=== PATIENT | female | born 1980 | race Caucasian/White ===

== ENCOUNTER 2017-11-08 01:13 | Emergency (ER) | payer BC, OTHER ==
[2017-11-08 02:24] VITALS: BP 128/89; PULSE 101; TEMP 98.8; BMI 46.4
[2017-11-08] MEDS ORDERED: SODIUM CHLORIDE 1,000 ML IV STA (02:39)
[2017-11-08] MEDS ORDERED: ONDANSETRON 4 MG/2 ML VIAL IVPUSH STA (02:39)
[2017-11-08] MEDS ORDERED: ONDANSETRON 4 MG/2 ML VIAL ONE (02:43)
--- NOTE | 2017-11-08 02:59 | PDOC ---
History of Present Illness - General Chief Complaint: Vomiting/Diarrhea Stated Complaint: VOMITING Time Seen by Provider: 11/08/17 02:18 History Source: Patient - History of Present Illness Initial Comments: 11/08/17 03:49 37F presenting with multiple episodes of vomiting and diarrhea since 3pm this afternoon after eating what she thinks was spoiled sushi. Generalized muscle aches from what she believes is from joey her body during the episodes. No blood in stool, no headache, no abdominal pain no dysuria. Delivered 6 month ago. No one else sick at home. Multiple histories of nephrolithiasis 11/08/17 03:55 Past History - Past Medical History Allergies/Adverse Reactions: Allergies Allergy/AdvReac Type Severity Reaction Status Date / Time codeine [Codeine] Allergy Mild Hives Verified 11/08/17 02:24 Home Medications: Ambulatory Orders Pnv No.25/Iron Fumarate/FA/Dha [-1 Capsule] 1 each PO DAILY 10/08/12 Acetaminophen [Tylenol .Regular Strength -] 325 mg PO Q3H PRN #2 tablet Ibuprofen [Motrin -] 200 mg PO Q4H PRN #2 tablet 10/19/12 Vitamins (Sjr) - 1 tab PO DAILY #1 tablet 10/19/12 Asthma: No Cancer: No Cardiac Disorders: No Diabetes: No HTN: No Seizures: No Thyroid Disease: No - Suicide/Smoking/Psychosocial Hx Smoking History: Never smoked Have you smoked in the past 12 months: No Information on smoking cessation initiated: No Hx Alcohol Use: No Drug/Substance Use Hx: No Hx Substance Use Treatment: No Review of Systems - Review of Systems Able to Perform ROS?: Yes Constitutional: Yes: See HPI, Loss of Appetite. No: Fever HEENTM: No: Symptoms Reported Respiratory: No: Symptoms reported Cardiac (ROS): No: Symptoms Reported ABD/GI: Yes: See HPI, Diarrhea, Vomiting, Indigestion, Abdominal cramping. No: Blood Streaked Bowels, Constipated, Rectal Bleeding : No: Symptoms Reported Musculoskeletal: No: Symptoms Reported Integumentary: No: Symptoms Reported All Other Systems: Reviewed and Negative *Physical Exam - Vital Signs Last Vital Signs Temp Pulse Resp BP Pulse Ox 98.8 F 101 H 20 128/89 99 11/08/17 02:11 11/08/17 02:11 11/08/17 02:11 11/08/17 02:11 11/08/17 02:11 - Physical Exam General Appearance: Yes: Appropriately Dressed, Apparent Distress, Obese HEENT: positive: EOMI, TARSHA, Normal ENT Inspection Neck: negative: Tender Respiratory/Chest: positive: Lungs Clear, Normal Breath Sounds. negative: Chest Tender Cardiovascular: positive: Regular Rhythm, Regular Rate, S1, S2 Gastrointestinal/Abdominal: positive: Soft, Increased Bowel Sounds, Protuberent. negative: Distended, Guarding, Rebound, Tenderness, Hernia, Mass, Hepatomegaly, Spleenomegaly Integumentary: positive: Normal Color, Dry, Warm. negative: Cyanotic, Pale, Cold, Clammy, Diaphoresis Neurologic: positive: Fully Oriented, Alert, Normal Mood/Affect, Normal Response , Motor Strength 03/22 ED Treatment Course - LABORATORY CBC & Chemistry Diagram: 11/08/17 02:54 11/08/17 02:54 - Medications Given in the ED: ED Medications Discontinued Medications Generic Name Dose Route Start Last Admin Trade Name Lali PRN Reason Stop Dose Admin Ondansetron HCl 4 mg 11/08/17 02:39 11/08/17 02:57 Zofran Injection IVPUSH 11/08/17 02:40 4 mg ONCE STA Administration Medical Decision Making - Medical Decision Making 11/08/17 03:56 37F with n/v post lunch. food poisoning vs viral gastroenteritis vs ? cbc, cmp to assess electrolyte depletion 11/08/17 04:20 iron deficiency anemia, incidental tolerates PO now. just urinated UA u preg pending--> negative ok to DC with follow up 11/08/17 04:50 *DC/Admit/Observation/Transfer Diagnosis at time of Disposition: Food poisoning - Discharge Dispostion Disposition: HOME Condition at time of disposition: Fair Admit: No - Referrals Referrals: Deniz James MD [Primary Care Provider] - - Patient Instructions Printed Discharge Instructions: DI for Food Poisoning, Iron-Deficiency Anemia Additional Instructions: PLease follow up with your primary physician within the next 2 days. Come back to Er for any new, worsning or concerning symptoms. - Post Discharge Activity
[2017-11-08 03:18] LABS: BASO # 0.1 # (0.1-1); BASO % 0.4 % (0-2.0); EOS % 0.3 % (0-4.5); LYMPH # 0.2 (8-40); MCH 21.8 pg (25.7-33.7); MCHC 31.4 g/dl (32.0-36.0); MEAN CELL VOLUME 69.6 fl (80-96); MEAN PLT VOLUME 7.5 fl (7.5-11.1); MONO # 0.3 # (3.8-10.2); NEUT # 11.5 # (42.8-82.8); NEUT % 95.1 % (42.8-82.8); PLATELET COUNT 353 K/MM3 (134-434); RDW 19.7 % (11.6-15.6); WHITE BLOOD COUNT 12.1 K/mm3 (4.0-10.0)
--- NOTE | 2017-11-08 03:22 | PDOC ---
Attending Attestation - HPI HPI: 11/08/17 03:42 The patient is a 37 year old female with a past medical history of kidney stones who presents to the emergency department today with vomiting and diarrhea this yesterday afternoon. The patient states that she had sushi for lunch yesterday and one of the last pieces tasted funny. Approximately, 90 minutes later the patient had her first episode of emesis. The patient states that she did not try to treat symptoms at home. <Partha Loving - Last Filed: 11/08/17 03:42> - Resident Resident Name: Kishor Zaidi - ED Attending Attestation I have performed the following: I have examined & evaluated the patient, The case was reviewed & discussed with the resident, I agree w/resident's findings & plan, Exceptions are as noted - Physicial Exam PE: 11/08/17 04:19 Physical Exam General Appearance: Yes: Appropriately Dressed. No: Apparent Distress, Intoxicated HEENT: positive: EOMI, TARSAH, Normal ENT Inspection, Normal Voice, TMs Normal, Pharynx Normal. negative: Pale Conjunctivae, Photophobia, Scleral Icterus (R), Scleral Icterus (L) Neck: positive: Trachea midline, Normal Thyroid, Supple. negative: Tender, Rigid, Carotid bruit, Stridor, Lymphadenopathy (R), Lymphadenopathy (L), Thyromegaly Respiratory/Chest: positive: Lungs Clear, Normal Breath Sounds. negative: Chest Tender, Respiratory Distress, Accessory Muscle Use, Labored Respiration, RES, Crackles, Rales, Rhonchi, Stridor, Wheezing, Dullness Cardiovascular: positive: Regular Rhythm, Regular Rate, S1, S2. negative: Edema , JVD, Murmur, Bradycardia, Tachycardia Vascular Pulses: Dorsalis-Pedis (R): 2+, Doralis-Pedis (L): 2+ Gastrointestinal/Abdominal: positive: Normal Bowel Sounds, Flat, Soft. negative : Tender, Organomegaly, Pulsatile Mass, Increased Bowel Sounds, Decreased BS, Distended, Guarding, Rebound, Hernia, Hepatomegaly, Spleenomegaly Lymphatic: negative: Adenopathy, Tenderness Musculoskeletal: positive: Normal Inspection. negative: CVA Tenderness, Decreased Range of Motion Extremity: positive: Normal Capillary Refill, Normal Inspection, Normal Range of Motion, Pelvis Stable. negative: Tender, Pedal Edema, Swelling, Erythema Integumentary: positive: Normal Color, Dry, Warm. negative: Cyanotic, Erythema , Jaundice, Rash Neurologic: positive: shop clerk II-XII NML intact, Fully Oriented, Alert, Normal Mood/ Affect, Motor Strength 5/5. negative: EOM Palsy, Facial Droop, Sensory Deficit - Medical Decision Making 11/12/17 19:26 Pt treated and released <Fausto Linares - Last Filed: 11/12/17 19:26>
[2017-11-08 03:42] LABS: ALBUMIN 3.5 g/dl (3.4-5.0); ANION GAP 9 (8-16); CALCIUM 8.7 mg/dL (8.5-10.1); CO2 23 mmol/L (21-32); CREATININE 0.9 mg/dL (0.55-1.02); GLUCOSE,RANDOM 130 mg/dL (74-106); SGOT/AST 19 U/L (15-37); SGPT/ALT 30 U/L (12-78); TOT PROT 7.3 g/dl (6.4-8.2)
[2017-11-08 03:43] LABS: ALK PHOS 85 U/L (45-117)
[2017-11-08 04:33] LABS: URINE APPEARANCE SLCLOUDY; URINE BILIRUBIN NEGATIVE (NEGATIVE); URINE BLOOD NEGATIVE (NEGATIVE); URINE COLOR YELLOW; URINE GLUCOSE (UA) NEGATIVE (NEGATIVE); URINE KETONE NEGATIVE (NEGATIVE); URINE LEUK ESTERASE NEGATIVE (NEGATIVE); URINE NITRITE NEGATIVE (NEGATIVE); URINE PROTEIN NEGATIVE (NEGATIVE)
[2017-11-08 05:44] LABS: ANISOCYTOSIS 1+; HYPOCHROMIA 2+; MICROCYTOSIS 1+
[2017-11-08 05:45] LABS: OVALOCYTE 1+; PLATELET ESTIMATE ADEQUATE
[2017-11-08 09:21] LABS: URINE LEUK ESTERASE Negative (NEGATIVE)
== END 2017-11-08 04:57 | disposition home or self-care (01) ==
LOC: JER 01:13
PROC: 3E033GC Introduction of Other Therapeutic Substance into Peripheral Vein, Percutaneous Approach (ICD-10-PCS; principal; 2017-11-08)
DX: T61.8X1A Toxic effect of other seafood, accidental (unintentional), initial encounter (principal); Y92.89 Other specified places as the place of occurrence of the external cause
CPT/HCPCS: 36415; 80053; 81003; 84703; 85025; 99283-25